=== PATIENT | male | born 1985 | race Caucasian/White ===

== ENCOUNTER 2024-10-19 14:12 | Outpatient (CLI) | payer OTHER, SELFPAY | END 2024-10-19 14:13 | disposition home or self-care (01) | PROVIDERS: PCP Family Medicine; Visit Provider Family Medicine | DX: I10 Essential (primary) hypertension (principal); E29.1 Testicular hypofunction; E66.811 Obesity, class 1; R53.83 Other fatigue; N52.9 Male erectile dysfunction, unspecified | CPT/HCPCS: 80053; 84443 ==